=== PATIENT | male | born 1995 | race Caucasian/White ===

== ENCOUNTER 2021-05-21 03:06 | Emergency (ER) | payer OTHER ==
--- NOTE | 2021-05-21 03:14 | ERPHSYRPT ---
- History of Present Illness Source: patient Exam Limitations: no limitations Physician History: 26 yo wm w R otalgia today. Pt denies cough/coryza/ST/Fever/N/V/D. Timing/Duration: this afternoon Severity: moderate ENT Location: ear (R) Prearrival Treatment: no prearrival treatment Associated Symptoms: ear pain (R), No ear pain (L), No cough, No fever, No chills, No change in hearing, No dizziness, No drooling, No ear drainage, No facial pain/swelling, No headache, No hearing loss, No jaw pain, No malaise, No motion sickness, No nasal congestion/drainage, No epistaxis, No nasal foreign body, No neck pain, No poor fluid intake, No poor solids intake, No ringing of ears, No swollen glands, No sinus infection, No sore throat, No tooth pain, No difficulty swallowing Allergies/Adverse Reactions: No Known Drug Allergies Allergy (Unverified 05/21/21 03:23) - Review of Systems Constitutional: No Symptoms Eyes: No Symptoms Ears, Nose, & Throat: No Symptoms, Ear Pain Respiratory: No Symptoms Cardiac: No Symptoms Abdominal/Gastrointestinal: No Symptoms Genitourinary Symptoms: No Symptoms Musculoskeletal: No Symptoms Skin: No Symptoms Neurological: No Symptoms Psychological: No Symptoms Endocrine: No Symptoms Hematologic/Lymphatic: No Symptoms Immunological/Allergic: No Symptoms - Past Medical History Pertinent Past Medical History: No - Social History Smoking Status: Current every day smoker Alcohol Use: None Drug Use: none Significant Family History: no pertinent family hx - Nursing Vital Signs Nursing Vital Signs: Initial Vital Signs Temperature 98.5 F 05/21/21 03:24 Pulse Rate 66 05/21/21 03:24 Respiratory Rate 18 05/21/21 03:24 Blood Pressure 116/65 05/21/21 03:24 O2 Sat by Pulse Oximetry 98 05/21/21 03:24 Pain Scale Pain Intensity 6 WNL - Physical Exam General Appearance: no apparent distress Eye Exam: bilateral eye: normal inspection, PERRL, EOMI Ear Exam: right ear: TM red (R TM erythematous w poor landmarks), left ear: auricle normal, canal normal, TM normal Nasal Exam: normal inspection Throat Exam: normal, pharynx normal Neck Exam: normal inspection, non-tender, supple, full range of motion, trachea midline Cardiovascular/Respiratory Exam: normal breath sounds, regular rate/rhythm, heart sounds normal Abdominal Exam: non-tender, soft, no organomegaly Neurologic Exam: alert, oriented x 3, cooperative, improvement advisor II-XII nml as tested, normal mood/affect, nml cerebellar function, nml station & gait, sensation nml, No motor deficits, No sensory deficit Skin Exam: normal color, warm, dry - Course Nursing assessment & vital signs reviewed: Yes Ordered Tests: Medication Summary Discontinued Medications Generic Name Dose Route Start Last Admin Trade Name Enriqueta PRN Reason Stop Dose Admin Amoxicillin/Clavulanate Potassium 875 mg 05/21/21 03:12 05/21/21 03:17 Amox Tr/Potassium Clavulanate 875 Mg Tablet PO 05/21/21 03:13 875 mg STAT ONE Administration Amoxicillin/Clavulanate Potassium Confirm 05/21/21 03:16 Amox Tr/Potassium Clavulanate 875 Mg Tablet Administered 05/21/21 03:17 Dose 875 mg .ROUTE .STK-MED ONE - Progress Progress: improved Progress Note: 05/21/21 03:13 875mg po Augmentin x1 Pt refuses all pain meds Counseled pt/family regarding: diagnosis, need for follow-up - Departure Departure Disposition: Home Clinical Impression: Otitis media Condition: Stable Critical Care Time: No Referrals: DOCTOR,NO FAMILY [Primary Care Provider] - Follow up/PCP as directed Instructions: Ear Infections (Otitis Media) in Children (DC) Additional Instructions: Augmentin twice a day for 10 days Motrin/Tylenol for pain Follow up with your family MD Return to ER as needed Prescriptions: Amox Tr/Potass Clav. 875 mg [Augmentin 875-125 Tablet] 875 mg PO BID 10 Days #20 tablet
[2021-05-21] MEDS ORDERED: Augmentin 875-125 Tablet ONE (03:16)
[2021-05-21] MEDS: Augmentin 875-125 Tablet PO ONE (03:17)
[2021-05-21 03:45] VITALS: BP 116/65; PULSE 66; O2SAT 98
== END 2021-05-21 03:30 | disposition home or self-care (01) ==
LOC: ED 03:06
DX: H66.91 Otitis media, unspecified, right ear (principal); Z72.0 Tobacco use
CPT/HCPCS: 99283; A9270-GY